=== PATIENT | female | born 1995 | race Caucasian/White ===

== ENCOUNTER 2017-01-15 10:56 | Emergency (ER) | payer OTHER ==
[2017-01-15 11:21] VITALS: TEMP 98.2
--- NOTE | 2017-01-15 12:33 | UCPHY ---
H & P Time Seen by Provider: 01/15/17 11:03 Patient Type: New HPI/ROS: 21-year-old female presents complaining while riding on a horse it came to a sudden stop and she hit her chest on its neck this happened about 1 week ago she continues to have pain in her chest with certain movements particularly after exercise or with running with movement of her chest. She denies shortness of breath she denies fever or chills she denies dizziness. She has not taken any ibuprofen or acetaminophen for her pain. Review of systems General no fever no chills no weakness HEENT no eye pain no eye discharge. No eye redness, no sore throat Respiratory no cough, no shortness of breath Cardiac positive chest pain, no peripheral edema GI no abdominal pain, no diarrhea, no constipation, no nausea, no vomiting no flank pain, no hematuria, no dysuria Musculoskeletal no myalgias, no joint pain Heme no easy bruising, no easy bleeding Endo no polyuria, no polydipsia Skin no rashes, no pruritus Neuro no syncope, no dizziness, no headaches Psych is no suicidal ideation, no homicidal ideation Past Medical/Surgical History: Noncontributory Social History: No excessive alcohol or drug use Smoking Status: Never smoked Physical Exam: 21-year-old female alert and oriented no acute distress nontoxic appearance afebrile HEENT atraumatic normocephalic, extraocular muscles intact, anicteric Oropharynx negative for erythema negative exudate, tolerating her own secretions Neck supple no meningismus Lungs clear to auscultation bilaterally Chest mild parasternal tenderness at costo sternal junction, no bruising no swelling Heart regular rate and rhythm without murmur rub or gallop Abdomen nondistended normoactive bowel sounds soft nontender Back no CVA tenderness, no step-offs, no spinal tenderness Extremities no cyanosis clubbing or edema Neuro alert and oriented, no focal deficits Constitutional: Initial Vital Signs Temperature (C) 36.8 C 01/15/17 11:00 Heart Rate 102 H 01/15/17 11:00 Respiratory Rate 18 01/15/17 11:00 Blood Pressure 129/83 H 01/15/17 11:00 O2 Sat (%) 96 01/15/17 11:00 O2 Delivery Mode Room Air Allergies/Adverse Reactions: amoxicillin [From Augmentin] Allergy (Verified 01/15/17 11:06) clavulanic acid [From Augmentin] Allergy (Verified 01/15/17 11:06) Home Medications: Medication Instructions Recorded Janessa-Be 01/15/17 Medical Decision Making - Diagnostics Imaging Results: Imaging Impressions Chest X-Ray 01/15/17 11:33 Impression: 1. Likely old mild T8 and T11 compressions, considering the patient's site of pain. 2. Nothing acute identified. 3. Considering the chronic pain, CT or MRI could possibly be helpful to look for radiographically occult injury. ED Course/Re-evaluation: Patient seen and evaluated for chest wall pain after an accident on her horse. Chest x-ray negative Differential diagnosis considered Chest contusion, rib fracture, costochondritis, costochondral strain Impression Costochondritis/strain Plan Rest Ibuprofen Follow up with primary care Departure - Departure Disposition: Home, Routine, Self-Care Clinical Impression: Costochondral chest pain Condition: Good Instructions: Costochondritis (ED) Referrals: Maricruz Law PA [Primary Care Provider] - As per Instructions - PQRS PQRS Measurement: Not applicable
[2017-01-15 12:49] VITALS: BP 128/70; PULSE 85; RESP 14; O2SAT 97
== END 2017-01-15 12:49 | disposition home or self-care (01) ==
LOC: CED 10:56
DX: M94.0 Chondrocostal junction syndrome [Tietze] (principal)
CPT/HCPCS: 71020-PO; G0463-PO